=== PATIENT | male | born 1940 | race Caucasian/White ===

== ENCOUNTER 2022-02-20 09:19 | Day surgery (SDC) | payer MEDICARE, BC ==
[~2022-02-20 09:19] MED LIST: Midazolam 1 MG/ML 2 ML SDV ONE; Propofol 200 MG/20 ML SDV ONE; fentaNYL 100 MCG/2 ML SDV ONE
[2022-02-20] MEDS ORDERED: Sodium Chloride 0.9% 1,000 ML IV SCH (10:15)
== END 2022-02-20 12:10 | disposition home or self-care (01) ==
LOC: JP.SDS 09:19
PROVIDERS: ATTEND Family Medicine
DX: D12.5 Benign neoplasm of sigmoid colon (principal); D12.8 Benign neoplasm of rectum; E78.5 Hyperlipidemia, unspecified
CPT/HCPCS: J2250; J2704; J3010; J7030

== ENCOUNTER 2023-07-05 09:23 | Emergency (ER) | payer MEDICARE, BC ==
[2023-07-05] MEDS ORDERED: Sodium Chloride 0.9% 50 ML IV ONE (10:48)
[2023-07-05] MEDS ORDERED: Iopamidol 612 MG/ML 100 ML Bottle IV PRN (10:48)
[2023-07-05] MEDS ORDERED: Sodium Chloride 0.9% 10 ML Syringe FLUSH PRN (10:48)
[2023-07-05] MEDS: Sodium Chloride 0.9% 10 ML Syringe FLUSH PRN ×2 (10:49→11:09)
[2023-07-05 10:52] LABS: BASOPHILS ABSOLUTE AUTO 0.03 K/uL (0.00-0.10); BASOPHILS PERCENT AUTO 0.2 % (0.1-1.3); EOSINOPHILS PERCENT AUTO 0.1 % (0.0-5.4); HEMATOCRIT 37.9 % (38.4-49.7); HEMOGLOBIN 13.3 g/dL (12.9-16.9); IMMATURE GRAN ABSOLUTE AUTO 0.09 K/uL (0.00-0.23); IMMATURE GRAN PERCENT AUTO 0.6 % (0.0-0.7); LYMPHOCYTES ABSOLUTE AUTO 2.16 K/uL (0.8-3.3); LYMPHOCYTES PERCENT AUTO 15.6 % (11.4-47.7); MEAN CORPUSCULAR HEMOGLOBIN 28.4 pg (31.6-35.5); MEAN CORPUSCULAR HGB CONC 35.1 g/dL (31.6-35.5); MEAN CORPUSCULAR VOLUME 80.8 fL (81.4-99.0); MONOCYTES PERCENT AUTO 10.1 % (3.3-12.6); NEUTROPHILS ABSOLUTE AUTO 10.18 K/uL (1.0-7.6); NEUTROPHILS PERCENT AUTO 73.4 % (40.0-78.1); PLATELET COUNT,PLT 454 K/uL (130-375); RED BLOOD CELL COUNT 4.69 M/uL (4.14-5.76); WHITE BLOOD CELL COUNT,WBC 13.9 K/uL (3.2-11.0)
[2023-07-05 11:08] LABS: EOSINOPHILS ABSOLUTE AUTO 0.02 K/uL (0.00-0.40)
[2023-07-05 11:13] LABS: A/G RATIO 0.5 (1.2-2.2); ALANINE AMINOTRANSFERASE,ALT 19 U/L (12-78); ALBUMIN 2.5 g/dL (3.4-5.0); ALKALINE PHOSPHATASE 184 U/L (46-116); ASPARTATE AMNIOTRANSFERASE,AST 34 U/L (15-37); BILIRUBIN TOTAL 0.4 mg/dL (0.2-1.0); BLOOD UREA NITROGEN,BUN 9 mg/dL (7-18); CALCIUM 8.9 mg/dL (8.5-10.1); CARBON DIOXIDE,CO2 30 mmol/L (21-32); CHLORIDE,CL 90 mmol/L (100-108); CREATININE 0.7 mg/dL (0.8-1.3); EST CRCL DRUG DOSING (CG) 81.43 mL/min; ESTIMATED GFR 93 mL/min (>60); GLUCOSE RANDOM 103 mg/dL (74-106); PROTEIN TOTAL,TP 7.3 g/dL (6.4-8.2); SODIUM,NA 127 mmol/L (140-148)
[2023-07-05] MEDS ORDERED: Potassium Chloride 20 MEQ Tab.ER PO ONE (11:25)
[2023-07-05] MEDS ORDERED: Sodium Chloride 0.9% 1,000 ML IV ONE (11:25)
[2023-07-05 12:19] LABS: APPEARANCE,URINE CLEAR (CLEAR); BILIRUBIN,URINE NEGATIVE (NEGATIVE); COLOR,URINE YELLOW (YELLOW); GLUCOSE,URINE NEGATIVE (NEGATIVE); KETONES,URINE NEGATIVE (NEGATIVE); LEUKOCYTE ESTERASE,URINE NEGATIVE (NEGATIVE); NITRITE,URINE NEGATIVE (NEGATIVE); OCCULT BLOOD,URINE NEGATIVE (NEGATIVE); PH,URINE 7.5 (5.0-8.0); PROTEIN,URINE NEGATIVE (NEGATIVE); UROBILINOGEN,URINE 0.2 EU/dL (0.2-1.0)
[2023-07-05 12:27] LABS: AMORPHOUS SEDIMENT,URINE NOT SEEN; BACTERIA,URINE NOT SEEN; EPITHELIAL CELLS,URINE NOT SEEN; MUCUS,URINE NOT SEEN; RBC,URINE NOT SEEN (0-5); WBC,URINE 0-5 (0-5)
== END 2023-07-05 13:38 | disposition home or self-care (01) ==
LOC: JP.ED 09:23
DX: R59.0 Localized enlarged lymph nodes (principal); N28.89 Other specified disorders of kidney and ureter; R91.1 Solitary pulmonary nodule; E87.6 Hypokalemia; E87.0 Hyperosmolality and hypernatremia; R63.4 Abnormal weight loss; E87.8 Other disorders of electrolyte and fluid balance, not elsewhere classified; E78.00 Pure hypercholesterolemia, unspecified; I10 Essential (primary) hypertension; E03.9 Hypothyroidism, unspecified; Z79.899 Other long term (current) drug therapy; Z68.25 Body mass index [BMI] 25.0-25.9, adult
CPT/HCPCS: 36415; 74177; 80053; 81001; 83605; 83690; 85025; 96360; 99284; A9270; J3490; J7030; Q9967; 88112

== ENCOUNTER 2023-08-25 16:09 | Emergency (ER) | payer MEDICARE, BC ==
[2023-08-25] MEDS ORDERED: Apixaban 5 MG Tab PO ONE (17:18)
[2023-08-25] MEDS ORDERED: Apixaban 5 MG Tab ONE (17:30)
[2023-08-25 17:31] LABS: BASOPHILS ABSOLUTE AUTO 0.03 K/uL (0.00-0.10); BASOPHILS PERCENT AUTO 0.2 % (0.1-1.3); EOSINOPHILS ABSOLUTE AUTO 0.05 K/uL (0.00-0.40); EOSINOPHILS PERCENT AUTO 0.3 % (0.0-5.4); HEMOGLOBIN 11.6 g/dL (12.9-16.9); IMMATURE GRAN ABSOLUTE AUTO 0.08 K/uL (0.00-0.23); IMMATURE GRAN PERCENT AUTO 0.5 % (0.0-0.7); LYMPHOCYTES ABSOLUTE AUTO 1.66 K/uL (0.8-3.3); LYMPHOCYTES PERCENT AUTO 11.4 % (11.4-47.7); MEAN CORPUSCULAR HEMOGLOBIN 29.1 pg (31.6-35.5); MEAN CORPUSCULAR HGB CONC 34.1 g/dL (31.6-35.5); MEAN CORPUSCULAR VOLUME 85.2 fL (81.4-99.0); MONOCYTES ABSOLUTE AUTO 1.46 K/uL (0.20-0.90); NEUTROPHILS ABSOLUTE AUTO 11.29 K/uL (1.0-7.6); NEUTROPHILS PERCENT AUTO 77.6 % (40.0-78.1); PLATELET COUNT,PLT 299 K/uL (130-375); RED BLOOD CELL COUNT 3.99 M/uL (4.14-5.76); WHITE BLOOD CELL COUNT,WBC 14.6 K/uL (3.2-11.0)
[2023-08-25 17:46] LABS: ANION GAP 11.6 mmol/L (5.0-14.0); CALCIUM 8.8 mg/dL (8.5-10.1); CREATININE 0.7 mg/dL (0.8-1.3); EST CRCL DRUG DOSING (CG) 77.52 mL/min; POTASSIUM,K 3.6 mmol/L (3.6-5.2)
[2023-08-25 17:51] LABS: PROTHROMBIN TIME 10.6 sec (9.2-10.6); PTT,PARTIAL THROMBOPLSTIN TIME 31.9 sec (21.8-27.3)
== END 2023-08-25 18:00 | disposition home or self-care (01) ==
LOC: JP.ED 16:09
DX: I26.99 Other pulmonary embolism without acute cor pulmonale (principal); N28.89 Other specified disorders of kidney and ureter; E78.00 Pure hypercholesterolemia, unspecified; I10 Essential (primary) hypertension; E03.9 Hypothyroidism, unspecified; Z88.8 Allergy status to other drugs, medicaments and biological substances; Z79.01 Long term (current) use of anticoagulants
CPT/HCPCS: 36415; 80048; 85025; 85610; 85730; 99283; A9270